=== PATIENT | female | born 1945 | race Caucasian/White ===

== ENCOUNTER 2017-12-30 11:16 | Observation (INO) | payer MEDICARE, SELFPAY ==
[2017-12-30] VITALS (14 sets, daily range): BP systolic 94–125; BP diastolic 44–106; PULSE 53–64; RESP 14–23; TEMP 36.4–37.2; O2SAT 97–100; BMI 24.1; BMI 22.0
--- NOTE | 2017-12-30 11:34 | NURSING ---
pt an family does not know medications obtained from external list, pt just got medications filled 6-18.
--- NOTE | 2017-12-30 11:35 | EKG12_ITS ---
Test Reason : DIZZINESS Blood Pressure : / mmHG Vent. Rate : 061 BPM Atrial Rate : 061 BPM P-R Int : 178 ms QRS Dur : 064 ms QT Int : 466 ms P-R-T Axes : 092 013 038 degrees QTc Int : 469 ms Normal sinus rhythm Normal ECG Confirmed by KM MOCTEZUMA, LIA ([id number]), industrial editor SHAMIKA MABRY ([id number] on 12/31/2017 5:01:02 PM Referred By: PATEL/DEEP Confirmed By:LIA BARBOUR MD
--- NOTE | 2017-12-30 11:36 | ED.VISSUMM ---
- ER Visit Summary Date of Service: 12/30/17 Chief Complaint: Syncope History of Present Illness: The patient is a [address] Tavares and Dr. Rasmussen. She reports that she had been standing in the garage for approximately 10 minutes when she had a syncopal episode. States that prior to that she had palpitations as though her heart was racing. She was very lightheaded and diaphoretic. She denies any chest pain. She denies any injuries from the fall. No blow to the head or loss of consciousness. She is not on any blood thinners. No neck, back, shoulder, wrist, or hip pain. Patient reports the only time she felt like this previously was when she was in atrial fibrillation. Currently she just complains of generalized weakness. Physical Examination: Vitals: Stable. Afebrile. General: Well-nourished and well-developed. Head: Normocephalic atraumatic. Neck: Supple, no lymphadenopathy. No JVD. Nontender. Cardiovascular: Bradycardic regular rhythm. No murmurs. Respiratory: No respiratory distress. Clear to auscultation bilaterally. Abdominal: Soft, nontender, nondistended, normal bowel sounds. No guarding, rebound, or peritoneal signs. Back: Nontender. Extremities: Nontender, no edema. Skin: Normal color, no rash. Neurologic: Alert and oriented ?3. Cranial nerves II through XII are intact. Normal strength and sensation. She has normal sensation light touch through her legs bilaterally. She has 2+ dorsalis pedis pulses bilaterally. Psych: Normal affect. Test Results: EKG is sinus at 61 with no acute changes. CBC is remarkable for a white count of 14.3 with 77 7 neutrophils and 14 lymphocytes. Chem-7 is more for glucose of 113. INR is 1.1. TSH is 2.19. Troponin is negative. Chest x-ray shows no acute disease. Emergency Department Course and Treatment: Patient rested comfortably while in the emergency department. She did however have systolic blood pressures less than 100. Treatment Plan: Patient was discussed with Dr. Ontiveros for. She will be admitted for further evaluation and treatment. Disposition: Admitted in improved condition. Impression: 1. Syncope. 2. Bilateral leg paresthesias, intermittent. This note was generated with Hyperpublic[employer] software. It may contain incorrect words, spelling, and punctuation that were not noted in review of the chart prior to signing ED Disposition - Plan for ED Patient: Disposition: Home or Assisted Living Chief Complaint: Dizziness
[2017-12-30 11:48] LABS: Absolute Lymphocyte Count 1.95 X10^3/ul (0.83-4.51); Absolute Neutrophil Count 10.9 X10^3/uL (2.0-7.7); Basophil# 0.01 X10^3/uL; Basophil% 0.1 % (0-1); Eosinophil# 0.02 X10^3/uL; Eosinophils% 0.1 % (0-5); Hematocrit 39.1 % (37-47); Hemoglobin 12.8 g/dl (12.0-15.0); Lymphocyte # 1.95 X10^3/ul (4.0); Lymphocyte % 13.7 % (19-41); Mean Corp Hgb Conc 32.7 g/gl (32-36); Mean Corpuscular Hgb 32.2 pg (27.0-32.0); Mean Corpuscular Volume 98.2 fL (81-99); Mean Platelet Vol. 10.9 fl (6.2-12.0); Monocyte# 1.36 X10^3/uL; Monocyte% 9.5 % (0-10); Neutrophil % 76.5 % (47-70); Platelet Count 170 K/mm3 (150-450); RBC Distribution Width SD 46.9 fl (35.1-43.9); Red Blood Count 3.98 M/mm3 (4.2-5.4); White Blood Count 14.3 K/mm3 (4.4-11.0)
[2017-12-30 11:50] LABS: POSITIVE COUNT NO; POSITIVE DIFFERENTIAL NO; POSITIVE MORPHOLOGY NO
[2017-12-30 11:51] LABS: International Normalized Ratio 1.1; Prothrombin Time (Protime)PT. 14.6 SECONDS (11.7-14.9)
[2017-12-30 12:07] LABS: Anion Gap 7 (5-15); BUN 17 mg/dL (7-18); BUN/Creat Ratio 19.1 RATIO (10-20); Calcium,Total 9.2 mg/dL (8.5-10.1); Chloride 103 mmol/L (98-107); Creatinine, Serum 0.89 mg/dL (0.55-1.02); EST Glomerular Filtration Rate 67 mL/min (>60); Est Glom Filt Rate - Afr Amer 81 mL/min (>60); Glucose 113 mg/dL (74-106); Potassium 4.2 mmol/L (3.5-5.1); Sodium Level 136 mmol/L (136-145); Thyroid Stim Hormone (TSH) 2.19 uIU/mL (0.358-3.74)
--- NOTE | 2017-12-30 13:08 | RAD_ITS ---
STUDY: X-RAY CHEST REASON FOR EXAM: Female, 72 years old. SYNCOPE ,WEAKNESS TECHNIQUE: Single AP portable view of the chest. COMPARISON: None. FINDINGS: The lungs are clear and hyperexpanded. There is no demonstrated pleural abnormality. Normal size heart. Normal mediastinum and raina. Normal visualized pulmonary arteries. There is atherosclerotic calcification of the aortic arch with tortuosity. Normal visualized thoracic spine. Normal visualized ribs, clavicles, and shoulders. There is no demonstrated abnormality of the visualized soft tissue structures of the upper abdomen. RAD/Chest 1 View (Portable) IMPRESSION: The lungs are hyperexpanded. Electronically Signed: Lina Tai MD at 13:25 EDT , Service support ,
--- NOTE | 2017-12-30 14:38 | PCM.HP.STD ---
Problem List (1) Dementia Status: Chronic (2) Paroxysmal atrial fibrillation Status: Chronic (3) Hyperlipidemia Status: Chronic (4) Hypertension Status: Chronic History of Present Illness Date of Admission: 12/30/17 Chief Complaint: Syncope The patient is a 72 year old F with past medical history as mentioned presented to the medicine because of syncope. According to the patient, she was standing in the garage, fell slightly dizzy and lightheaded and she passed out. According to her , she lost consciousness for about 30-45 seconds and she regained consciousness slowly. Reportedly and according to the opposition, she had significant palpitations and she was lightheaded and diaphoretic. She denied chest pain or shortness of breath. She denies any significant injuries fall. No head trauma. She reported numbness and tingling of both legs that has been going on for couple of months. She denied focal leg weakness. She denied back pain. She has history of paroxysmal atrial fibrillation and she has been on sotalol for rate control but not on anticoagulation. She has a history of hypertension and seems to be under control with lisinopril and sotalol. She has history of mild dementia, was on Aricept and around 1 week ago, she was started on memantine. In the emergency room, her vital signs were stable, and she was in sinus rhythm. Routine blood work was remarkable for leukocytosis, otherwise normal. EKG revealed normal sinus rhythm, normal [place] interval, normal QRS, QTC of 469 Ms. Troponin is negative. TSH is normal. Pro time and INR were normal. Chest x-ray showed no acute infiltrate, consolidation or effusion. She is being admitted for syncope for evaluation. Past Medical History Past Medical History (Chronic Problems): Chronic Problems Dementia (Chronic) Paroxysmal atrial fibrillation (Chronic) Hyperlipidemia (Chronic) Hypertension (Chronic) Allergies No Known Allergies Allergy (Verified 12/30/17 11:21) Home Medications: Ambulatory Orders Medication Instructions Recorded Aspirin [Aspirin, Baby] 81 mg PO DAILY@0800 12/30/17 Donepezil HCl [Aricept] 5 mg PO DAILY 12/30/17 Gabapentin [Neurontin] 300 mg PO DAILY 12/30/17 Memantine HCl [Memantine HCl] 5 mg PO BID 12/30/17 Sotalol HCl [Betapace AF (Beta 80 mg PO DAILY 12/30/17 Robyn)] lisinopril 2.5 mg tablet 2.5 mg PO DAILY #90 tab 12/30/17 simvastatin 20 mg tablet 20 mg PO QHS #90 tab 12/30/17 Surgical History: colectomy Psychiatric History: No pertinent psych hx 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 Denies: Anorexia, Chills, Fever Eyes: Denies: Blurred vision, Double vision, Drainage, Redness HEENT: Denies: Difficulty Hearing, Ear Pain, Eye Pain, Nasal Congestion, Sore Throat Cardiovascular: Reports: Light Headedness, Palpitations. Denies: Chest Pain, Chest Pressure, Edema, Heaviness, Orthopnea, Paroxysmal Noc. Dyspnea, Syncope Respiratory: Denies: Cough, Pleuritic Pain, Shortness of Breath, Sputum production, Wheezing Gastrointestinal: Reports: Nausea. Denies: Abdominal Pain, Constipation, Diarrhea, Vomiting Genitourinary: Denies: Dysuria, Frequency, Hematuria Musculoskeletal: Denies: Arm Pain, Back Pain, Foot Pain Skin: Denies: Dryness, Rash Neurological: Reports: Numbness, Tingling. Denies: Balance problems, Double vision, Change in Speech, Slurred speech, Confusion, Focal weakness, Headaches, Incoordination Psychiatric: Denies: Anxiety, Depression Endocrine: Denies: Change in Body Habitus, Polydipsia VTE Information - Inpt Only VTE Present on Admission: No VTE Mechan Device Prophylaxis: None VTE Pharm Prophylaxis ordered?: Yes - Physical Exam General: Alert, Oriented x3, Cooperative, No apparent distress HEENT: Atraumatic, PERRLA, EOMI, Normocephalic Neck: Supple, No JVD, Negative Carotid Bruits, Trachea Midline, Thyroid Normal Size and Texture Lungs: Clear to auscultation, No rhonchi, No wheeze, No rales, Diminished Cardiovascular: Regular rate, Regular Rhythm, Normal S1, Normal S2, No murmurs, PMI Normal Abdomen: Bowel Sounds Present, Soft, Non Tender, Non-Distended, No Hepato-splenomegaly Extremities: No clubbing, No cyanosis, No edema Skin: No rashes, No breakdown Lymphatic: No Cervical, Supraclavicular, or Inguinal Adenopathy Neurological: Cranial nerves II-XII grossly intact, Motor Exam 5/5 strength throughout Psych/Mental Status: Normal Affect, Appropriate, Alert and oriented to time, place, person, mood and affect Vital Signs Temp Pulse Resp BP Pulse Ox 97.5 F L 59 L 16 95/56 L 100 12/30/17 11:18 12/30/17 13:22 12/30/17 13:22 12/30/17 13:22 12/30/17 13:22 Oxygen Flow Rate (L/min) 2 Oxygen Delivery Method Room Air Weight: 145 lb 1.027 oz Body Mass Index (BMI) 24.1 Laboratory Tests Past 24 Hrs 12/30/17 12/30/17 12/30/17 11:25 11:25 11:25 WBC 14.3 H RBC 3.98 L Hgb 12.8 Hct 39.1 MCV 98.2 MCH 32.2 H MCHC 32.7 RDW 13.0 RDW Differential 46.9 H Plt Count 170 MPV 10.9 Immature Gran % (Auto) 0.100 Neut % (Auto) 76.5 H Lymph % (Auto) 13.7 L [place] % (Auto) 9.5 Eos % (Auto) 0.1 Baso % (Auto) 0.1 Absolute Neuts (auto) 10.9 H Absolute Lymphs (auto) 1.95 Total Counted Not Reportable PT 14.6 INR 1.1 Sodium 136 Potassium 4.2 Chloride 103 Carbon Dioxide 26.0 Anion Gap 7 BUN 17 Creatinine 0.89 Est GFR (MDRD) Af Amer 81 Est GFR (MDRD) Non-Af 67 BUN/Creatinine Ratio 19.1 Glucose 113 H Calcium 9.2 Troponin I < 0.015 TSH 2.19 Clinical Impression(s) from Imaging Studies Chest X-Ray 12/30/17 13:08 IMPRESSION: The lungs are hyperexpanded. Electronically Signed: Lina Tai MD at 13:25 EDT , Service support , Assessment/Plan This is a 72 years old female patient presented to the emergency room because of syncope and she is being admitted for evaluation #1 syncope: According to the history, it appeared to be cardiogenic in etiology. Differential diagnoses include cardiac arrhythmias including undiscovered run of A. fib with RVR or vascular disease. EKG reviewed, revealed normal sinus rhythm, no cardiac arrhythmias. She does have history of paroxysmal A. fib. At this time, vital signs are stable. Troponin is negative. She denied any focal deficit suggestive of stroke. Plan: Admit to PCU for observation, cardiac monitoring, serial cardiac enzymes, repeat EKG tomorrow morning, orthostatic vitals tomorrow morning, 2D echocardiogram, bilateral carotid Doppler, IV fluids, repeat CBC tomorrow morning, PT OT evaluation and treatment. #2 leukocytosis: Likely reactive secondary to syncope and stress. Has been mentioned that she has been having going under lots of stress and anxiety recently because of family issues. She denies any symptoms. Infection. Chest x-ray showed no acute infiltrate. She denies urinary symptoms. Plan to repeat CBC tomorrow morning. #3 hypertension: Blood pressure stable, continue sotalol and lisinopril. #4 paroxysmal A. fib: At this time, she is in sinus rhythm, stable. Plan to continue suitable, she is not on anticoagulants. #5 hyperlipidemia: Continue statins. #6 dementia: Continue Aricept and memantine. #7 DVT prophylaxis: Subcu Lovenox. This note was generated with [employer] dictation software. It may contain incorrect words, spelling, and punctuation that were not noted in checking the note before signing. Code Visit OBSV E&M: 06005 Initial observation care L3
--- NOTE | 2017-12-30 14:48 | HP.PCM_ITS ---
Problem List (1) Dementia Status: Chronic (2) Paroxysmal atrial fibrillation Status: Chronic (3) Hyperlipidemia Status: Chronic (4) Hypertension Status: Chronic History of Present Illness Date of Admission: 12/30/17 Chief Complaint: Syncope The patient is a 72 year old F with past medical history as mentioned presented to the medicine because of syncope. According to the patient, she was standing in the garage, fell slightly dizzy and lightheaded and she passed out. According to her , she lost consciousness for about 30-45 seconds and she regained consciousness slowly. Reportedly and according to the opposition, she had significant palpitations and she was lightheaded and diaphoretic. She denied chest pain or shortness of breath. She denies any significant injuries fall. No head trauma. She reported numbness and tingling of both legs that has been going on for couple of months. She denied focal leg weakness. She denied back pain. She has history of paroxysmal atrial fibrillation and she has been on sotalol for rate control but not on anticoagulation. She has a history of hypertension and seems to be under control with lisinopril and sotalol. She has history of mild dementia, was on Aricept and around 1 week ago , she was started on memantine. In the emergency room, her vital signs were stable, and she was in sinus rhythm. Routine blood work was remarkable for leukocytosis, otherwise normal. EKG revealed normal sinus rhythm, normal [place] interval, normal QRS, QTC of 469 Ms. Troponin is negative. TSH is normal. Pro time and INR were normal. Chest x-ray showed no acute infiltrate, consolidation or effusion. She is being admitted for syncope for evaluation. Past Medical History Past Medical History (Chronic Problems): Chronic Problems Dementia (Chronic) Paroxysmal atrial fibrillation (Chronic) Hyperlipidemia (Chronic) Hypertension (Chronic) Allergies No Known Allergies Allergy (Verified 12/30/17 11:21) Home Medications: Ambulatory Orders Medication Instructions Recorded Aspirin [Aspirin, Baby] 81 mg PO DAILY@0800 12/30/17 Donepezil HCl [Aricept] 5 mg PO DAILY 12/30/17 Gabapentin [Neurontin] 300 mg PO DAILY 12/30/17 Memantine HCl [Memantine HCl] 5 mg PO BID 12/30/17 Sotalol HCl [Betapace AF (Beta 80 mg PO DAILY 12/30/17 Robyn)] lisinopril 2.5 mg tablet 2.5 mg PO DAILY #90 tab 12/30/17 simvastatin 20 mg tablet 20 mg PO QHS #90 tab 12/30/17 Surgical History: colectomy Psychiatric History: No pertinent psych hx 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 Denies: Anorexia, Chills, Fever Eyes: Denies: Blurred vision, Double vision, Drainage, Redness HEENT: Denies: Difficulty Hearing, Ear Pain, Eye Pain, Nasal Congestion, Sore Throat Cardiovascular: Reports: Light Headedness, Palpitations. Denies: Chest Pain, Chest Pressure, Edema, Heaviness, Orthopnea, Paroxysmal Noc. Dyspnea, Syncope Respiratory: Denies: Cough, Pleuritic Pain, Shortness of Breath, Sputum production, Wheezing Gastrointestinal: Reports: Nausea. Denies: Abdominal Pain, Constipation, Diarrhea, Vomiting Genitourinary: Denies: Dysuria, Frequency, Hematuria Musculoskeletal: Denies: Arm Pain, Back Pain, Foot Pain Skin: Denies: Dryness, Rash Neurological: Reports: Numbness, Tingling. Denies: Balance problems, Double vision, Change in Speech, Slurred speech, Confusion, Focal weakness, Headaches, Incoordination Psychiatric: Denies: Anxiety, Depression Endocrine: Denies: Change in Body Habitus, Polydipsia VTE Information - Inpt Only VTE Present on Admission: No VTE Mechan Device Prophylaxis: None VTE Pharm Prophylaxis ordered?: Yes - Physical Exam General: Alert, Oriented x3, Cooperative, No apparent distress HEENT: Atraumatic, PERRLA, EOMI, Normocephalic Neck: Supple, No JVD, Negative Carotid Bruits, Trachea Midline, Thyroid Normal Size and Texture Lungs: Clear to auscultation, No rhonchi, No wheeze, No rales, Diminished Cardiovascular: Regular rate, Regular Rhythm, Normal S1, Normal S2, No murmurs, PMI Normal Abdomen: Bowel Sounds Present, Soft, Non Tender, Non-Distended, No Hepato- splenomegaly Extremities: No clubbing, No cyanosis, No edema Skin: No rashes, No breakdown Lymphatic: No Cervical, Supraclavicular, or Inguinal Adenopathy Neurological: Cranial nerves II-XII grossly intact, Motor Exam 5/5 strength throughout Psych/Mental Status: Normal Affect, Appropriate, Alert and oriented to time, place, person, mood and affect Vital Signs Temp Pulse Resp BP Pulse Ox 97.5 F L 59 L 16 95/56 L 100 12/30/17 11:18 12/30/17 13:22 12/30/17 13:22 12/30/17 13:22 12/30/17 13:22 Oxygen Flow Rate (L/min) 2 Oxygen Delivery Method Room Air Weight: 145 lb 1.027 oz Body Mass Index (BMI) 24.1 Laboratory Tests Past 24 Hrs 12/30/17 12/30/17 12/30/17 11:25 11:25 11:25 WBC 14.3 H RBC 3.98 L Hgb 12.8 Hct 39.1 MCV 98.2 MCH 32.2 H MCHC 32.7 RDW 13.0 RDW Differential 46.9 H Plt Count 170 MPV 10.9 Immature Gran % (Auto) 0.100 Neut % (Auto) 76.5 H Lymph % (Auto) 13.7 L [place] % (Auto) 9.5 Eos % (Auto) 0.1 Baso % (Auto) 0.1 Absolute Neuts (auto) 10.9 H Absolute Lymphs (auto) 1.95 Total Counted Not Reportable PT 14.6 INR 1.1 Sodium 136 Potassium 4.2 Chloride 103 Carbon Dioxide 26.0 Anion Gap 7 BUN 17 Creatinine 0.89 Est GFR (MDRD) Af Amer 81 Est GFR (MDRD) Non-Af 67 BUN/Creatinine Ratio 19.1 Glucose 113 H Calcium 9.2 Troponin I < 0.015 TSH 2.19 Clinical Impression(s) from Imaging Studies Chest X-Ray 12/30/17 13:08 IMPRESSION: The lungs are hyperexpanded. Electronically Signed: Lina Tai MD at 13:25 EDT , Service support , Assessment/Plan This is a 72 years old female patient presented to the emergency room because of syncope and she is being admitted for evaluation #1 syncope: According to the history, it appeared to be cardiogenic in etiology. Differential diagnoses include cardiac arrhythmias including undiscovered run of A. fib with RVR or vascular disease. EKG reviewed, revealed normal sinus rhythm, no cardiac arrhythmias. She does have history of paroxysmal A. fib. At this time, vital signs are stable. Troponin is negative. She denied any focal deficit suggestive of stroke. Plan: Admit to PCU for observation, cardiac monitoring, serial cardiac enzymes, repeat EKG tomorrow morning, orthostatic vitals tomorrow morning, 2D echocardiogram, bilateral carotid Doppler, IV fluids, repeat CBC tomorrow morning, PT OT evaluation and treatment. #2 leukocytosis: Likely reactive secondary to syncope and stress. Has been mentioned that she has been having going under lots of stress and anxiety recently because of family issues. She denies any symptoms. Infection. Chest x-ray showed no acute infiltrate. She denies urinary symptoms. Plan to repeat CBC tomorrow morning. #3 hypertension: Blood pressure stable, continue sotalol and lisinopril. #4 paroxysmal A. fib: At this time, she is in sinus rhythm, stable. Plan to continue suitable, she is not on anticoagulants. #5 hyperlipidemia: Continue statins. #6 dementia: Continue Aricept and memantine. #7 DVT prophylaxis: Subcu Lovenox. This note was generated with [employer] dictation software. It may contain incorrect words, spelling, and punctuation that were not noted in checking the note before signing. Code Visit OBSV E&M: 54869 Initial observation care L3
--- NOTE | 2017-12-30 16:11 | CDU_ITS ---
Reason For Study: syncope Rt. Velocities/BP Lt. Velocities/BP Prox CCA 62.1/14.7 cm/sec. Prox CCA 89.7/25.2 cm/sec. Mid CCA 65.7/19.3 cm/sec. Mid CCA 68.0/18.8 cm/sec. Dist CCA 67.4/19.3 cm/sec. Dist CCA 73.9/23.5 cm/sec. Prox ICA 69.2/23.5 cm/sec. Prox ICA 73.9/21.7 cm/sec. Mid ICA 82.7/24.6 cm/sec. Mid ICA 74.5/25.8 cm/sec. Dist ICA 116/40.5 cm/sec. Dist ICA 102/35.8 cm/sec. Rt. ICA/CCA = 1.8. Lt. ICA/CCA = 1.5. Prox ECA 67.4/7.62 cm/sec. Prox ECA 55.7/11.1 cm/sec. Rt. Vert. 38.7/11.1 cm/sec. Lt. Vert. 38.1/12.9 cm/sec. Right Extracranial There is intimal thickening but no significant atherosclerotic plaque noted in the right common carotid artery. There is heterogeneous, irregular atherosclerotic plaque noted in the right internal carotid artery. There is intimal thickening but no significant atherosclerotic plaque noted in the right external carotid artery. Antegrade flow is noted in the right vertebral artery. Left Extracranial There is heterogeneous, irregular atherosclerotic plaque noted in the left common carotid artery. There is heterogeneous, irregular atherosclerotic plaque noted in the left internal carotid artery. There is intimal thickening but no significant atherosclerotic plaque noted in the left external carotid artery. Antegrade flow is noted in the left vertebral artery. Procedure Carotid Duplex [id number]. The exam was diagnostic. Exam performed portable in patient room. Interpretation Summary Minimal irregular calcific plague at the proximal right internal carotid with <50% stenosis. Minimal irregular calcific plague at the proixmal left internal carotid with <50% stenosis. Normal flow bilateral external carotids Patent and antegrade vertebrals bilaterally. Ordering Physician: Mili Thomason Performed By: Vikas Johnson RVT
--- NOTE | 2017-12-30 16:11 | ECHOD_ITS ---
Reason For Study: Syncope/Near Syncope Procedure This was a 2D Doppler, Color Flow transthoracic echocardiogram. The exam was of adequate technical quality. Exam performed in department. Left Ventricle Normal LV size. Left ventricular systolic function is normal. The estimated ejection fraction is 65 %. No evidence for diastolic dysfunction. No regional wall motion abnormalities noted. Right Ventricle Normal RV size. Normal systolic function. Atria Normal left atrium. Normal right atrium. No doppler evidence for ASD. Mitral Valve There is no mitral annular calcification. Normal mitral valve. Mild (1+) mitral valve insufficiency. Tricuspid Valve Normal tricuspid valve. Mild tricuspid valve insufficiency. Right ventricular systolic pressure estimated to be 21 mmHg. Aortic Valve Trisinus/trileaflet aortic valve. Mild focal aortic valve thickening. Pulmonic Valve The pulmonic valve is not well visualized. Trivial pulmonic valve insufficiency. Great Vessels Normal sized aortic root. Pericardium/Pleural No pericardial effusion. MMode/2D Measurements & Calculations LVIDd: 4.4 cm IVSd: 0.62 cm Ao root diam: 2.7 cm LVIDs: 2.5 cm LVPWd: 0.65 cm RVDd: 3.9 cm FS: 43.4 % LAV(MOD-bp): 33.5 ml LA A4 area: 14.2 cm2 RA A4 area: 12.4 cm2 LAV(MOD-bp) Indexed: 20.2 ml/m2 LAV(MOD-sp2): 30.7 ml LAV(MOD-sp4): 30.8 ml Doppler Measurements & Calculations MV E max gabriel: 91.2 cm/sec Lat Peak E' Gabriel: 11.2 cm/sec Med Peak E' Gabriel: 9.6 cm/sec MV A max gabriel: 86.9 cm/sec E/E' lat: 8.1 E/E' med: 9.6 MV E/A: 1.0 Ao V2 max: 147.1 cm/sec LV V1 max: 92.6 cm/sec PA V2 max: 101.9 cm/sec Ao max P.7 mmHg LV V1 max P.4 mmHg Ao V2 mean: 100.6 cm/sec Ao mean P.5 mmHg Ao V2 VTI: 31.7 cm TR max gabriel: 214.7 cm/sec TR max P.4 mmHg Interpretation Summary Left ventricular systolic function is normal. The estimated ejection fraction is 65 %. Mild (1+) mitral valve insufficiency. Mild tricuspid valve insufficiency. Mild focal aortic valve thickening. Trivial pulmonic valve insufficiency. Right ventricular systolic pressure estimated to be 21 mmHg. No evidence for diastolic dysfunction. Ordering Physician: Mili Thomason Referring Physician: Constance Tavares Performed By: Yana Cobian RDCS, RVT
[2017-12-30] MEDS: 0.9% Normal Saline 1,000 ML 75 ML IV (16:40)
[2017-12-30] MEDS: Memantine Hydrochloride 5 MG Tablet PO (21:09)
[2017-12-30] MEDS: Atorvastatin Calcium 10 MG Tablet PO (21:09)
[2017-12-31] VITALS (13 sets, daily range): BP systolic 93–111; BP diastolic 45–59; PULSE 52–71; RESP 14–20; TEMP 36.5–37; O2SAT 95–98
[2017-12-31 06:21] LABS: Hematocrit 35.8 % (37-47); Hemoglobin 11.9 g/dl (12.0-15.0); Mean Corp Hgb Conc 33.2 g/gl (32-36); Mean Corpuscular Hgb 33.3 pg (27.0-32.0); Mean Corpuscular Volume 100.3 fL (81-99); Mean Platelet Vol. 10.7 fl (6.2-12.0); Platelet Count 134 K/mm3 (150-450); RBC Distribution Width CV 12.8 % (11.6-14.6); RBC Distribution Width SD 45.9 fl (35.1-43.9); Red Blood Count 3.57 M/mm3 (4.2-5.4); White Blood Count 7.4 K/mm3 (4.4-11.0)
[2017-12-31 06:38] LABS: Scan Indicated on CBC? Y/N NO
[2017-12-31] MEDS: Aspirin 81 MG TAB.CHEW PO (08:16)
[2017-12-31] MEDS: Gabapentin 300 MG Capsule PO (08:16)
[2017-12-31] MEDS: Memantine Hydrochloride 5 MG Tablet PO ×2 (10:04→22:23)
[2017-12-31] MEDS: Enoxaparin 40 MG/0.4 ML Syringe SC (10:04)
[2017-12-31] MEDS: Donepezil HCl 5 MG Tablet PO (10:04)
[2017-12-31] MEDS: Sotalol Hydrochloride 80 MG Tablet PO (10:04)
[2017-12-31 10:45] LABS: Bacteria 0 SEEN /hpf (None Seen); Mucous, Urine 0 SEEN /hpf (<or=2+); Red Blood Cells-Urine 0 SEEN /hpf (0-5)
[2017-12-31 10:49] LABS: Color, Urine Yellow (Yellow); Glucose, Dipstick Normal (Normal); Ketone-Dipstick Negative (Negative); Leukocyte Esterase-Dipstick 25 /ul (Negative); Nitrite-Dipstick Negative (Negative); Occult Blood-Urine Negative /ul (Negative); Protein-Dipstick Negative (Negative); Specific Gravity, Urine 1.015 (1.002-1.030); Urine Bilirubin Dipstick Negative (Negative); Urine Clarity Sl. Cloudy (Clear); Urine Urobilinogen Normal (Normal)
[2017-12-31 11:14] LABS: Squamous Epithelial Cells - UA 0-5 SEEN /hpf (5-10); White Blood Cells 0-5 SEEN /hpf (0-5)
--- NOTE | 2017-12-31 13:41 | PN_ITS ---
Subjective: Patient seen and examined. No new complains. Vitals are stable. Objective: Physical Exam General: Alert, Oriented x3, Cooperative, No apparent distress HEENT: Atraumatic, PERRLA, EOMI, Normocephalic Neck: Supple, No JVD, Negative Carotid Bruits, Trachea Midline, Thyroid Normal Size and Texture Lungs: Clear to auscultation, No rhonchi, No wheeze, No rales, Diminished Cardiovascular: Regular rate, Regular Rhythm, Normal S1, Normal S2, No murmurs, PMI Normal Abdomen: Bowel Sounds Present, Soft, Non Tender, Non-Distended, No Hepato- splenomegaly Extremities: No clubbing, No cyanosis, No edema Skin: No rashes, No breakdown Lymphatic: No Cervical, Supraclavicular, or Inguinal Adenopathy Neurological: Cranial nerves II-XII grossly intact, Motor Exam 5/5 strength throughout Psych/Mental Status: Normal Affect, Appropriate, Alert and oriented to time, place, person, mood and affect Vitals/I&O's: Vital Signs Temp Pulse Resp BP Pulse Ox 98.6 F 64 14 95/45 L 97 12/31/17 10:01 12/31/17 10:01 12/31/17 10:01 12/31/17 10:01 12/31/17 10:01 Oxygen Flow Rate (L/min) 1 Oxygen Delivery Method Room Air Weight: 60 kg Body Mass Index (BMI) 22.0 Orthostatic Vital Signs Start: 12/31/17 05:24 Freq: q24h Status: Active Protocol: Activity Type Activity Date Activity User E-Sign Co-Sign Detail Recorded Client Recorded Date Recorded By Document 12/31/17 05:24 [facility] [place] [id number] 12/31/17 05:31 [facility] [place]/31/17 05:24 Orthostatic Vitals Standing -Blood Pressure (90/60-120/80) 105/59 L -Extremity Use Right Arm -Pulse Rate (60-100) 61 Sitting -Blood Pressure (90/60-120/80) 102/59 L -Extremity Use Right Arm -Pulse Rate (60-100) 57 L Lying -Blood Pressure (90/60-120/80) 93/48 L -Extremity Use Right Arm -Pulse Rate (60-100) 54 L Intake and Output for Last 24 Hours 12/29/17 12/30/1718 23:59 23:59 23:59 Intake Total 360 / 360 1404 / 1404 Balance 360 / 360 1404 / 1404 Laboratory Results 12/30/17 16:35: Troponin I < 0.015 12/30/17 18:56: Troponin I < 0.015 12/31/17 05:35: WBC 7.4, RBC 3.57 L, Hgb 11.9 L, Hct 35.8 L, MCV 100.3 H, MCH 33.3 H, MCHC 33.2, RDW 12.8, RDW Differential 45.9 H, Plt Count 134 L, MPV 10.7 12/31/17 10:35: Urine Color Yellow, Urine Clarity Sl. Cloudy, Urine pH 6.0, Ur Specific [place] 1.015, Urine Protein Negative, Urine Glucose (UA) Normal, Urine Ketones Negative, Urine Occult Blood Negative, Urine Nitrite Negative, Urine Bilirubin Negative, Urine Urobilinogen Normal, Ur Leukocyte Esterase 25 H , Urine RBC 0 SEEN, Urine WBC 0-5 SEEN, Ur Squamous Epith Cells 0-5 SEEN, Urine Bacteria 0 SEEN, Urine Mucus 0 SEEN Current Medications Acetaminophen (Tylenol) 650 mg PO Q6H PRN PRN PRN Reason: Mild Pain (scale 0-3)/T>100.7 Aspirin (Aspirin, Baby) 81 mg PO DAILY@0800 [facility] Last Admin: 12/31/17 08:16 Dose: 81 mg Atorvastatin Calcium (Lipitor) 10 mg PO QHS [facility] Last Admin: 12/30/17 21:09 Dose: 10 mg Donepezil HCl (Aricept) 5 mg PO DAILY [facility] Last Admin: 12/31/17 10:04 Dose: 5 mg Enoxaparin Sodium (Lovenox) 40 mg SC DAILY@1000 [facility] Last Admin: 12/31/17 10:04 Dose: 40 mg Gabapentin (Neurontin) 300 mg PO DAILYCM [facility] Last Admin: 12/31/17 08:16 Dose: 300 mg Lisinopril (Zestril) 2.5 mg PO DAILY [facility] Last Admin: 12/31/17 11:13 Dose: Not Given Magnesium Hydroxide (Milk Of Magnesia) 30 ml PO DAILY PRN PRN Reason: Constipation Memantine (Namenda) 5 mg PO BID [facility] Last Admin: 12/31/17 10:04 Dose: 5 mg Ondansetron HCl (Zofran) 4 mg IV Q8H PRN PRN PRN Reason: Nausea Sodium Chloride () 5 - 30 ml IV UD PRN PRN Reason: SALINE FLUSH Sotalol HCl (Betapace (G)) 80 mg PO DAILY [facility] Last Admin: 12/31/17 10:04 Dose: 80 mg Medical Necessity - Tobacco Use Smoking Status: Former smoker Assessment/Plan 72 years old female patient presented to the emergency room because of syncope and she is being admitted for evaluation 1. Syncope, likely cardiogenic, no events on telemetry, troponins are negative, 2d-echo is normal. Patient will need a holter monitor on discharge. 2. Leukocytosis, reactive, resolved 3. Hypertension, on stable, continue sotalol and lisinopril. 4. Paroxysmal A. fib, in NSR, no anticoagulants 5. Hyperlipidemia, on statins. 6. Dementia, on Aricept and memantine. 7. DVT prophylaxis: Subcu Lovenox. Code Visit Inpatient E&M: 50489 Subs Hosp L2
[2017-12-31] MEDS: Atorvastatin Calcium 10 MG Tablet PO (22:23)
[2018-01-01] VITALS (9 sets, daily range): BP systolic 101–119; BP diastolic 46–71; PULSE 56–72; RESP 14–16; TEMP 36.4–37; O2SAT 95–97
[2018-01-01] MEDS: Aspirin 81 MG TAB.CHEW PO (07:56)
[2018-01-01] MEDS: Acetaminophen 325 MG Tablet 650 MG PO (07:56)
[2018-01-01] MEDS: Gabapentin 300 MG Capsule PO (07:57)
[2018-01-01] MEDS: Donepezil HCl 5 MG Tablet PO (09:34)
[2018-01-01] MEDS: Memantine Hydrochloride 5 MG Tablet PO (09:34)
[2018-01-01] MEDS: Enoxaparin 40 MG/0.4 ML Syringe SC (09:34)
[2018-01-01] MEDS: Sotalol Hydrochloride 80 MG Tablet PO (09:34)
--- NOTE | 2018-01-01 11:40 | PCM.DC ---
- Discharge Diagnoses Current Active Problems: Current Active and Chronic Problems Dementia (Chronic) Paroxysmal atrial fibrillation (Chronic) Hyperlipidemia (Chronic) Hypertension (Chronic) You will use the following diet at home:: Cardiac Your food should be the consistency of: Regular Your liquids should be the consistency of: Regular/Thin Discharge Activity: Return to Normal Activity Allergies/Adverse Reactions: Allergies No Known Allergies Allergy (Verified 12/30/17 11:21) Medications to take at Discharge Aspirin [Aspirin, Baby] 81 mg PO DAILY@0800 12/30/17 Donepezil HCl [Aricept] 5 mg PO DAILY 12/30/17 Gabapentin [Neurontin] 300 mg PO DAILY 12/30/17 Memantine HCl 5 mg PO BID 12/30/17 Sotalol HCl [Betapace AF (Beta Robyn)] 80 mg PO DAILY 12/30/17 lisinopril 2.5 mg tablet 2.5 mg PO DAILY #90 tab 12/30/17 simvastatin 20 mg tablet 20 mg PO QHS #90 tab 12/30/17 Primary Care Physician: Constance Tavares [Primary Care Provider] - Please follow up with your Primary Care Physician in: 1-2 weeks Please Follow Up With: Stephen Rasmussen MD When: 2 weeks Proposed Discharge Date: 01/01/18
--- NOTE | 2018-01-01 13:28 | PCM.CONS.C ---
Problem List (1) Syncope Status: Acute (2) Paroxysmal atrial fibrillation Status: Chronic (3) Hyperlipidemia Status: Chronic (4) Hypertension Status: Chronic (5) Dementia Status: Chronic Reason for Consult Date of Consultation: 01/01/18 History of Present Illness: The patient is a 72 year old white female with a past cardiovascular history which has included underlying syncope, paroxysmal atrial fibrillation, hyperlipidemia, and hypertension, who is referred for evaluation of syncope. She has also been diagnosed with dementia. She notes that either before or after her daily walk yesterday, she cannot remember whether it was before or after her daily walk, she was in her garage, getting ready to enter her home, with her sister present, and subsequently lost consciousness. She does not recall having any obvious chest discomfort at rest or with exertion. There has been no obvious shortness of breath or dyspnea. There has been no obvious palpitations. She denied any associated nausea, emesis, diaphoresis, or the sensation overall warmth. She states she remembers being on the floor and seeing the EMS arrived. She then remembers arriving at the hospital. She does not recall any other symptoms since her event. She does note she was recently started on a new medication (Namenda) for her dementia. She states she had only been on this for a few days prior to her event. Since being in the hospital she has been monitored. She has been in sinus rhythm. Her cardiac enzyme was negative. Her ECG demonstrated sinus rhythm with no acute ECG changes. She is undergone noninvasive studies including a transthoracic echocardiogram and a carotid artery duplex study. Transthoracic echocardiogram noted the following: Interpretation Summary Left ventricular systolic function is normal. The estimated ejection fraction is 65 %. Mild (1+) mitral valve insufficiency. Mild tricuspid valve insufficiency. Mild focal aortic valve thickening. Trivial pulmonic valve insufficiency. Right ventricular systolic pressure estimated to be 21 mmHg. No evidence for diastolic dysfunction. Her carotid artery duplex study noted the following: Interpretation Summary Minimal irregular calcific plague at the proximal right internal carotid with <50% stenosis. Minimal irregular calcific plague at the proixmal left internal carotid with <50% stenosis. Normal flow bilateral external carotids Patent and antegrade vertebrals bilaterally. She has denied any other symptoms recently of concerning chest discomfort, dyspnea at rest or with exertion, orthopnea, PND, peripheral pitting edema, or near syncope or syncope. She has been taking her medications as prescribed. She does know that she has been diagnosed with dementia. She admits that her memory is becoming somewhat challenging. [] Past Medical History Allergies/Adverse Reactions: Allergies No Known Allergies Allergy (Verified 12/30/17 11:21) Home Medications: Ambulatory Orders Medication Instructions Recorded Aspirin [Aspirin, Baby] 81 mg PO DAILY@0800 12/30/17 Donepezil HCl [Aricept] 5 mg PO DAILY 12/30/17 Gabapentin [Neurontin] 300 mg PO DAILY 12/30/17 Memantine HCl 5 mg PO BID 12/30/17 Sotalol HCl [Betapace AF (Beta 80 mg PO DAILY 12/30/17 Robyn)] lisinopril 2.5 mg tablet 2.5 mg PO DAILY #90 tab 12/30/17 simvastatin 20 mg tablet 20 mg PO QHS #90 tab 12/30/17 Past Medical History (Chronic Problems): Chronic Problems Dementia (Chronic) Paroxysmal atrial fibrillation (Chronic) Hyperlipidemia (Chronic) Hypertension (Chronic) Surgical History: colectomy Psychiatric History: No 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 Denies: Chest Discomfort, Shortness of Breath, Orthopnea, PND, Peripheral Edema, Palpitations, Lightheadedness, Dizziness Respiratory: Denies: Cough, Sputum Production, Hemoptysis Gastrointestinal: Denies: Hematemesis, Hematochezia, Melena Genitourinary: Denies: Dysuria, Hematuria Skin: Denies: Rash Subjectve: Is a 72-year-old white female who appears to be resting comfortably at the moment in no acute distress. Objective: Vital Signs Temp Pulse Resp BP Pulse Ox 97.8 F 59 L 16 112/52 L 95 01/01/18 12:07 01/01/18 12:07 01/01/18 12:07 01/01/18 12:07 01/01/18 12:07 Oxygen Flow Rate (L/min) 1 Oxygen Delivery Method Room Air Weight: 132 lb 4.438 oz Body Mass Index (BMI) 22.0 Intake and Output for Last 24 Hours 12/30/17 12/31/17 01/01/18 23:59 23:59 23:59 Intake Total 360 / 360 2053 530 / 530 Balance 360 / 360 2053 530 / 530 General: Awake, Alert, Oriented x 3, Cooperative, No Acute Distress HEENT: Atraumatic, Normocephalic, PERRL, EOMI, Sclera Non Icteric Oral: Moist Mucosa Neck: Supple, Good ROM, No JVD Lungs: Clear to auscultation Cardiovascular: Regular Rhythm, Normal S1, Normal S2 Vascular: No Carotid Bruits Abdomen: Bowel Sounds Present, Soft, Non Tender Extremities: No Cyanosis, No Clubbing, No edema Neurological: No Focal Motor or Sensory Deficit Psych/Mental Status: Appropriate, Normal Affect, Dementia Rhythm: Sinus rhythm EKG: Sinus rhythm ECHO: As noted above Stress Test: 03/16/2015: Stress nuclear imaging study/pharmacologic stress nuclear imaging study: Nuclear images demonstrating myocardial perfusion within normal limits Cardiac Cath: 10/02/2009: Left ventricle considered normal with an LVEF of 65%; left main-normal; LAD-ostial 10% stenosis; LCx-minimal luminal irregularities; RCA-proximal to mid diffuse 10-25% stenosis CXR: Preliminary evaluation: No acute cardiopulmonary disease process appreciated: Please see official report Assessment/Plan 1. Syncope The etiology of the patient's syncopal event is uncertain at this time. There are concerns of potential underlying cardiac dysrhythmia/conduction system related abnormality, however, none have been detected at this time during her hospitalization. There may be concerns of underlying vasovagal type events, however, the patient does not describe other associated symptoms with her recent event. Thus far there is been no other obvious explanation. Her noninvasive evaluation is as noted above. At the present time she is going to continue medical management. It is unclear as to whether her new medication, Namenda, is contributing to her symptoms and/or event. It may not be unreasonable to consider placing this on hold temporarily. Otherwise it was felt the patient would be further evaluated with a 30 day ambulatory event monitor. This would be to correlate any other symptoms or events with her underlying cardiac rhythm. 2. Paroxysmal atrial fibrillation The patient remains in sinus rhythm at this time. She will continue her current medical management. She will continue follow-up as noted above. 3. Hyperlipidemia The patient will continue risk factor evaluation medical management as deemed appropriate. 4. Hypertension The patient's blood pressures will need to be followed. Her medications can be adjusted as deemed appropriate. 5. Dementia She will continue under the care of her primary care physician for this diagnosis. Comment: The patient's case was discussed with the patient. She was agreeable to this approach. This note was generated with [employer] dictation software. It may contain incorrect words, spelling, and punctuation that were not noted in checking the note before signing.
--- NOTE | 2018-01-01 13:33 | PCM.DC.SUM ---
<Vish Abebe - Last Filed: 01/01/18 13:33> Discharge Date and Diagnosis Date of Admission: 12/30/17 Date of Discharge: 01/01/18 - Primary Discharge Diagnosis Syncope unclear etiology Dementia HTN Paroxysmal AF HLD - Secondary Discharge Diagnosis Chronic Problems Dementia (Chronic) Paroxysmal atrial fibrillation (Chronic) Hyperlipidemia (Chronic) Hypertension (Chronic) Hospital Course and Treatment Imaging Results: RAD/Chest 1 View (Portable) IMPRESSION: The lungs are hyperexpanded. Carotid US: Interpretation Summary Minimal irregular calcific plague at the proximal right internal carotid with <50% stenosis. Minimal irregular calcific plague at the proixmal left internal carotid with <50% stenosis. Normal flow bilateral external carotids Patent and antegrade vertebrals bilaterally. Echo: Interpretation Summary Left ventricular systolic function is normal. The estimated ejection fraction is 65 %. Mild (1+) mitral valve insufficiency. Mild tricuspid valve insufficiency. Mild focal aortic valve thickening. Trivial pulmonic valve insufficiency. Right ventricular systolic pressure estimated to be 21 mmHg. No evidence for diastolic dysfunction. Consults: [facility] - cardiology Operations: None Procedures: 2-D Echocardiogram Summary of Care Provided: Physical exam on day of discharge: General: Resting comfortably NAD Psych: A/Ox3 normal affect HEENT: PEARRLA AT NC Neck: Supple NT CV: RRR no m/t/r/g/h Resp: CTA Abd: [id number] Soft NT no guarding or rigidity Ext: DP2+= no edema Skin: W/D normal turgor Lymph/Heme: No active bleeding or adenopathy Neuro: CN2-12 intact Hospital course: The patient is a 72 year old F with a hx of Paroxysmal AF, dementia, HLD, who presented to the ER with a syncopal episode that occurred suddenly without warning while standing and talking to her sister. She presented to the ER and had mild leukocytosis but otherwise normal bloodwork, negative UA, negative CXR, negative troponin, negative EKG. She was admitted to telemetry and maintain on tele overnight with repeat troponins. These were negative. She underwent an echocardiogram and carotid ultrasound. Orthostatic vitals were negative. Cardiology was consulted who recommended a 30 day event monitor. She had no further symptoms so she was discharged home in stable condition. Of note, she also had recently started namenda 3 days prior to this occurrent which could possibly have contributed, however it was continued here and she had no issues. Additionally it could have been stress related as she revealed the conversation with her sister was very upsetting and her felt it may have been contributory. Please follow up with PCP and cardiology. This patient was seen by Vish Abebe PA-C under the supervision of Doctor Jovi. [] Discharge Diet: Low fat/ Low Cholesterol, 2000 mg Sodium Diet Discharge Activity: Return to Normal Activity Home Medications: Medications to take at Discharge Aspirin [Aspirin, Baby] 81 mg PO DAILY@0800 12/30/17 Donepezil HCl [Aricept] 5 mg PO DAILY 12/30/17 Gabapentin [Neurontin] 300 mg PO DAILY 12/30/17 Memantine HCl 5 mg PO BID 12/30/17 Sotalol HCl [Betapace AF (Beta Robyn)] 80 mg PO DAILY 12/30/17 lisinopril 2.5 mg tablet 2.5 mg PO DAILY #90 tab 12/30/17 simvastatin 20 mg tablet 20 mg PO QHS #90 tab 12/30/17 Primary Care Physician: Constance Tavares [Primary Care Provider] - Please follow up with your Primary Care Physician in: 1-2 weeks Please Follow Up With: Stephen Rasmussen MD When: 2 weeks Please Follow Up With: Constance Tavares Disposition: Home Minutes spent on discharge:: 35 Patient Condition:: Stable Medical Necessity - Tobacco Use Smoking Status: Former smoker Meaningful Use Info Meaningful Use Diagnoses (Choose all that apply): None applicable <Sweetie Espana - Last Filed: 01/01/18 15:37> Discharge Date and Diagnosis - Secondary Discharge Diagnosis Chronic Problems Dementia (Chronic) Paroxysmal atrial fibrillation (Chronic) Hyperlipidemia (Chronic) Hypertension (Chronic) Hospital Course and Treatment Summary of Care Provided: The patient is a 72 year old F [] Code Visit Inpatient E&M: 39001 Disch Hosp
--- NOTE | 2018-01-01 13:39 | CON.PCM_ITS ---
Problem List (1) Syncope Status: Acute (2) Paroxysmal atrial fibrillation Status: Chronic (3) Hyperlipidemia Status: Chronic (4) Hypertension Status: Chronic (5) Dementia Status: Chronic Reason for Consult Date of Consultation: 01/01/18 History of Present Illness: The patient is a 72 year old white female with a past cardiovascular history which has included underlying syncope, paroxysmal atrial fibrillation, hyperlipidemia, and hypertension, who is referred for evaluation of syncope. She has also been diagnosed with dementia. She notes that either before or after her daily walk yesterday, she cannot remember whether it was before or after her daily walk, she was in her garage, getting ready to enter her home, with her sister present, and subsequently lost consciousness. She does not recall having any obvious chest discomfort at rest or with exertion. There has been no obvious shortness of breath or dyspnea. There has been no obvious palpitations. She denied any associated nausea, emesis, diaphoresis, or the sensation overall warmth. She states she remembers being on the floor and seeing the EMS arrived. She then remembers arriving at the hospital. She does not recall any other symptoms since her event. She does note she was recently started on a new medication (Namenda) for her dementia. She states she had only been on this for a few days prior to her event. Since being in the hospital she has been monitored. She has been in sinus rhythm. Her cardiac enzyme was negative. Her ECG demonstrated sinus rhythm with no acute ECG changes. She is undergone noninvasive studies including a transthoracic echocardiogram and a carotid artery duplex study. Transthoracic echocardiogram noted the following: Interpretation Summary Left ventricular systolic function is normal. The estimated ejection fraction is 65 %. Mild (1+) mitral valve insufficiency. Mild tricuspid valve insufficiency. Mild focal aortic valve thickening. Trivial pulmonic valve insufficiency. Right ventricular systolic pressure estimated to be 21 mmHg. No evidence for diastolic dysfunction. Her carotid artery duplex study noted the following: Interpretation Summary Minimal irregular calcific plague at the proximal right internal carotid with < 50% stenosis. Minimal irregular calcific plague at the proixmal left internal carotid with <50 % stenosis. Normal flow bilateral external carotids Patent and antegrade vertebrals bilaterally. She has denied any other symptoms recently of concerning chest discomfort, dyspnea at rest or with exertion, orthopnea, PND, peripheral pitting edema, or near syncope or syncope. She has been taking her medications as prescribed. She does know that she has been diagnosed with dementia. She admits that her memory is becoming somewhat challenging. [] Past Medical History Allergies/Adverse Reactions: Allergies No Known Allergies Allergy (Verified 12/30/17 11:21) Home Medications: Ambulatory Orders Medication Instructions Recorded Aspirin [Aspirin, Baby] 81 mg PO DAILY@0800 12/30/17 Donepezil HCl [Aricept] 5 mg PO DAILY 12/30/17 Gabapentin [Neurontin] 300 mg PO DAILY 12/30/17 Memantine HCl 5 mg PO BID 12/30/17 Sotalol HCl [Betapace AF (Beta 80 mg PO DAILY 12/30/17 Robyn)] lisinopril 2.5 mg tablet 2.5 mg PO DAILY #90 tab 12/30/17 simvastatin 20 mg tablet 20 mg PO QHS #90 tab 12/30/17 Past Medical History (Chronic Problems): Chronic Problems Dementia (Chronic) Paroxysmal atrial fibrillation (Chronic) Hyperlipidemia (Chronic) Hypertension (Chronic) Surgical History: colectomy Psychiatric History: No pertinent psych hx TAX ATTORNEY History: No pertinent TAX ATTORNEY history - *Family History Maternal History Items: No pertinent history Paternal History Items: No pertinent history Lives: Spouse/ Significant Other Smoking Status: Former smoker Alcohol: None Drugs: None Review of Systems - Review of Systems General: Denies: Fever, Night Sweats, Fatigue Cardiovascular: Reports: Syncope. Denies: Chest Discomfort, Shortness of Breath , Orthopnea, PND, Peripheral Edema, Palpitations, Lightheadedness, Dizziness Respiratory: Denies: Cough, Sputum Production, Hemoptysis Gastrointestinal: Denies: Hematemesis, Hematochezia, Melena Genitourinary: Denies: Dysuria, Hematuria Skin: Denies: Rash Subjectve: Is a 72-year-old white female who appears to be resting comfortably at the moment in no acute distress. Objective: Vital Signs Temp Pulse Resp BP Pulse Ox 97.8 F 59 L 16 112/52 L 95 01/01/18 12:07 01/01/18 12:07 01/01/18 12:07 01/01/18 12:07 01/01/18 12:07 Oxygen Flow Rate (L/min) 1 Oxygen Delivery Method Room Air Weight: 132 lb 4.438 oz Body Mass Index (BMI) 22.0 Intake and Output for Last 24 Hours 12/30/17 12/31/17 01/01/18 23:59 23:59 23:59 Intake Total 360 / 360 2053 530 / 530 Balance 360 / 360 2053 530 / 530 General: Awake, Alert, Oriented x 3, Cooperative, No Acute Distress HEENT: Atraumatic, Normocephalic, PERRL, EOMI, Sclera Non Icteric Oral: Moist Mucosa Neck: Supple, Good ROM, No JVD Lungs: Clear to auscultation Cardiovascular: Regular Rhythm, Normal S1, Normal S2 Vascular: No Carotid Bruits Abdomen: Bowel Sounds Present, Soft, Non Tender Extremities: No Cyanosis, No Clubbing, No edema Neurological: No Focal Motor or Sensory Deficit Psych/Mental Status: Appropriate, Normal Affect, Dementia Rhythm: Sinus rhythm EKG: Sinus rhythm ECHO: As noted above Stress Test: 03/16/2015: Stress nuclear imaging study/pharmacologic stress nuclear imaging study: Nuclear images demonstrating myocardial perfusion within normal limits Cardiac Cath: 10/02/2009: Left ventricle considered normal with an LVEF of 65%; left main-normal; LAD-ostial 10% stenosis; LCx-minimal luminal irregularities; RCA-proximal to mid diffuse 10-25% stenosis CXR: Preliminary evaluation: No acute cardiopulmonary disease process appreciated: Please see official report Assessment/Plan 1. Syncope The etiology of the patient's syncopal event is uncertain at this time. There are concerns of potential underlying cardiac dysrhythmia/conduction system related abnormality, however, none have been detected at this time during her hospitalization. There may be concerns of underlying vasovagal type events, however, the patient does not describe other associated symptoms with her recent event. Thus far there is been no other obvious explanation. Her noninvasive evaluation is as noted above. At the present time she is going to continue medical management. It is unclear as to whether her new medication, Namenda, is contributing to her symptoms and/ or event. It may not be unreasonable to consider placing this on hold temporarily. Otherwise it was felt the patient would be further evaluated with a 30 day ambulatory event monitor. This would be to correlate any other symptoms or events with her underlying cardiac rhythm. 2. Paroxysmal atrial fibrillation The patient remains in sinus rhythm at this time. She will continue her current medical management. She will continue follow-up as noted above. 3. Hyperlipidemia The patient will continue risk factor evaluation medical management as deemed appropriate. 4. Hypertension The patient's blood pressures will need to be followed. Her medications can be adjusted as deemed appropriate. 5. Dementia She will continue under the care of her primary care physician for this diagnosis. Comment: The patient's case was discussed with the patient. She was agreeable to this approach. This note was generated with [employer] dictation software. It may contain incorrect words, spelling, and punctuation that were not noted in checking the note before signing.
--- NOTE | 2018-01-01 13:42 | DS.PCM_ITS ---
<Vish Abebe - Last Filed: 01/01/18 13:33> Discharge Date and Diagnosis Date of Admission: 12/30/17 Date of Discharge: 01/01/18 - Primary Discharge Diagnosis Syncope unclear etiology Dementia HTN Paroxysmal AF HLD - Secondary Discharge Diagnosis Chronic Problems Dementia (Chronic) Paroxysmal atrial fibrillation (Chronic) Hyperlipidemia (Chronic) Hypertension (Chronic) Hospital Course and Treatment Imaging Results: RAD/Chest 1 View (Portable) IMPRESSION: The lungs are hyperexpanded. Carotid US: Interpretation Summary Minimal irregular calcific plague at the proximal right internal carotid with < 50% stenosis. Minimal irregular calcific plague at the proixmal left internal carotid with <50 % stenosis. Normal flow bilateral external carotids Patent and antegrade vertebrals bilaterally. Echo: Interpretation Summary Left ventricular systolic function is normal. The estimated ejection fraction is 65 %. Mild (1+) mitral valve insufficiency. Mild tricuspid valve insufficiency. Mild focal aortic valve thickening. Trivial pulmonic valve insufficiency. Right ventricular systolic pressure estimated to be 21 mmHg. No evidence for diastolic dysfunction. Consults: [facility] - cardiology Operations: None Procedures: 2-D Echocardiogram Summary of Care Provided: Physical exam on day of discharge: General: Resting comfortably NAD Psych: A/Ox3 normal affect HEENT: PEARRLA AT NC Neck: Supple NT CV: RRR no m/t/r/g/h Resp: CTA Abd: [id number] Soft NT no guarding or rigidity Ext: DP2+= no edema Skin: W/D normal turgor Lymph/Heme: No active bleeding or adenopathy Neuro: CN2-12 intact Hospital course: The patient is a 72 year old F with a hx of Paroxysmal AF, dementia, HLD, who presented to the ER with a syncopal episode that occurred suddenly without warning while standing and talking to her sister. She presented to the ER and had mild leukocytosis but otherwise normal bloodwork, negative UA, negative CXR , negative troponin, negative EKG. She was admitted to telemetry and maintain on tele overnight with repeat troponins. These were negative. She underwent an echocardiogram and carotid ultrasound. Orthostatic vitals were negative. Cardiology was consulted who recommended a 30 day event monitor. She had no further symptoms so she was discharged home in stable condition. Of note, she also had recently started namenda 3 days prior to this occurrent which could possibly have contributed, however it was continued here and she had no issues. Additionally it could have been stress related as she revealed the conversation with her sister was very upsetting and her felt it may have been contributory. Please follow up with PCP and cardiology. This patient was seen by Vish Abebe PA-C under the supervision of Doctor Jovi. [] Discharge Diet: Low fat/ Low Cholesterol, 2000 mg Sodium Diet Discharge Activity: Return to Normal Activity Home Medications: Medications to take at Discharge Aspirin [Aspirin, Baby] 81 mg PO DAILY@0800 12/30/17 Donepezil HCl [Aricept] 5 mg PO DAILY 12/30/17 Gabapentin [Neurontin] 300 mg PO DAILY 12/30/17 Memantine HCl 5 mg PO BID 12/30/17 Sotalol HCl [Betapace AF (Beta Robyn)] 80 mg PO DAILY 12/30/17 lisinopril 2.5 mg tablet 2.5 mg PO DAILY #90 tab 12/30/17 simvastatin 20 mg tablet 20 mg PO QHS #90 tab 12/30/17 Primary Care Physician: Constance Tavares [Primary Care Provider] - Please follow up with your Primary Care Physician in: 1-2 weeks Please Follow Up With: Stephen Rasmussen MD When: 2 weeks Please Follow Up With: Constance Tavares Disposition: Home Minutes spent on discharge:: 35 Patient Condition:: Stable Medical Necessity - Tobacco Use Smoking Status: Former smoker Meaningful Use Info Meaningful Use Diagnoses (Choose all that apply): None applicable <Sweetie Espana - Last Filed: 01/01/18 15:37> Discharge Date and Diagnosis - Secondary Discharge Diagnosis Chronic Problems Dementia (Chronic) Paroxysmal atrial fibrillation (Chronic) Hyperlipidemia (Chronic) Hypertension (Chronic) Hospital Course and Treatment Summary of Care Provided: The patient is a 72 year old F [] Code Visit Inpatient E&M: 75787 Disch Hosp
== END 2018-01-01 11:41 | disposition home or self-care (01) ==
LOC: ED 12:10 → PCU 14:49
PROVIDERS: Admitting Provider Hospitalist; Emergency Provider Emergency Medicine; Family Provider Internal Medicine; PCP Internal Medicine; Visit Provider Internal Medicine
DX: R55 Syncope and collapse (principal); I48.0 Paroxysmal atrial fibrillation; E78.5 Hyperlipidemia, unspecified; F03.90 Unspecified dementia, unspecified severity, without behavioral disturbance, psychotic disturbance, mood disturbance, and anxiety; I08.1 Rheumatic disorders of both mitral and tricuspid valves; Z87.891 Personal history of nicotine dependence; I65.23 Occlusion and stenosis of bilateral carotid arteries; I10 Essential (primary) hypertension; Z79.899 Other long term (current) drug therapy; Z79.82 Long term (current) use of aspirin
CPT/HCPCS: 36415; 71045; 80048; 81001; 84443; 84484; 85025; 85027; 85610; 93005; 93306; 93880; 96360; 96361; 96372; 97161; 97165; 97802; 99218; 99285; J7030; J7040; A4216; G0378

== ENCOUNTER → 2018-03-17 07:22 | Outpatient (CLI) | payer MEDICARE, SELFPAY | PROVIDERS: Family Provider Internal Medicine; PCP Internal Medicine; Visit Provider Internal Medicine Cardiovascular Disease | DX: I10 Essential (primary) hypertension (principal); I71.4 Abdominal aortic aneurysm, without rupture | CPT/HCPCS: 93978 ==

== ENCOUNTER 2018-04-17 06:16 | Emergency (ER) | payer MEDICARE, SELFPAY ==
[2018-04-17 06:20] VITALS: BP 136/54; PULSE 60; RESP 14; TEMP 36.9; O2SAT 98; BMI 21.6
--- NOTE | 2018-04-17 06:40 | ED.DCSUM_ITS ---
- ER Visit Summary Date of Service: 04/17/18 Chief Complaint: Upset all night History of Present Illness: The patient is a 72 F who presents with labile emotions. She was recently diagnosed with dementia. states that she has had memory problems and does not remember anything for the past year. He states over the last week she has had increased difficulty controlling her emotions. She was up all night last night crying. The patient states that she does feel anxious. She states she had some nausea but that this has since resolved. She otherwise has no focal complaints. No recent illness fever chest pain shortness of breath vomiting diarrhea. The patient states she does not know why she is here. She states she just wants to go home. She does have an appointment with her primary care physician on Friday. Physical Examination: Afebrile vitals are unremarkable Moist mucous membranes Heart regular rate Lungs clear Abdomen soft Alert, oriented to person and place and year but not month, states this is baseline No focal or lateralizing neurological deficits Test Results: Not indicated Emergency Department Course and Treatment: Patient essentially presents with depression and anxiety. No recent medical illness. Patient does have an appointment with her primary care physician on Friday. I explained to the that this is not uncommon with dementia. I advised that will be important to follow-up with the primary care physician as she may benefit from treatment such as an antidepressant. He vocalized understanding. He is agreeable to this plan. We discussed a short course of anxiolytics for now until she can follow-up. The patient states she does not want to take any medication and think she will be fine until Friday but I did explain that she may benefit so we will write the prescription in case she wants to try it. Patient discharged. Treatment Plan: [] Disposition: Discharge Impression: Dementia Anxiety This note was generated with [employer] dictation software. It may contain incorrect words, spelling, and punctuation that were not noted in review of the chart prior to signing ED Disposition - Plan for ED Patient: Chief Complaint: Confusion Referrals: Constance Tavares [Primary Care Provider] -
--- NOTE | 2018-04-17 06:40 | ED.DEP ---
ED Disposition - Plan for ED Patient: Chief Complaint: Confusion Instructions: ED Dementia Caregiver Support Prescriptions: Lorazepam [Ativan] 0.5 mg PO TID #6 tab Referrals: Constance Tavares [Primary Care Provider] -
== END 2018-04-17 06:48 | disposition home or self-care (01) ==
PROVIDERS: Emergency Provider Emergency Medicine; Family Provider Internal Medicine; PCP Internal Medicine
DX: F41.9 Anxiety disorder, unspecified (principal); F03.90 Unspecified dementia, unspecified severity, without behavioral disturbance, psychotic disturbance, mood disturbance, and anxiety; F32.9 Major depressive disorder, single episode, unspecified; I48.91 Unspecified atrial fibrillation; Z79.82 Long term (current) use of aspirin; Z79.899 Other long term (current) drug therapy
CPT/HCPCS: 99282; A4216

== ENCOUNTER → 2018-10-12 07:34 | Outpatient (CLI) | payer MEDICARE, SELFPAY ==
--- NOTE | 2018-10-12 07:37 | AAAS_ITS ---
Reason For Study: AAA Aorta Measurements Aorta Doppler Measurements Proximal aorta measures1.9cm. in cross-sectional Peak systolic flow velocities within the proximal axis. aorta measure 42.5 cm/sec. Proximal aorta measures1.9 x 1.9cm. in Peak systolic flow velocities within the mid aorta longitudinal axis. measure 50.1 cm/sec. Mid aorta measures2.1 x 2.2cm. in cross-sectional Peak systolic flow velocities within the distal axis. aorta measure 18.6 cm/sec. Mid aorta measures2.0cm. in longitudinal axis. Distal aorta measures3.8 x 4.3cm. in cross- sectional axis. Distal aorta measures3.8cm. in longitudinal axis. Distal aorta with thrombus and residual lumen 2.1x 2.4 cm. Left Iliac Artery Left iliac artery measures .88 cm. in the longitudinal axis. Left iliac artery measures 1.0 x .98 cm. in the cross-sectional axis. Peak systolic velocity in the left iliac artery measures 77.6 cm/sec. Right Iliac Artery Right iliac artery measures .92 cm. in the longitudinal axis. Right iliac artery measures 1.0 x 1.0 cm. in the cross-sectional axis. Peak systolic velocity in the right iliac artery measures 78.8 cm/sec. Procedure Aorta IVC Iliac vasculature or bypass grafts [id number]. Exam performed in department. Interpretation Summary Distal abdominal aortic aneurysm 3.82 x 4.25 cm. Mural thrombus noted. Distal lumen 2.1 x 2.4 cm Markedly diminished flow rate of 18.6cm/sec in the distal aorta. Left iliac 0.88 cm with normal flow rate Right iliac 0.92 cm with normal flow rate Minimal change since 03/17/18 Ordering Physician: Fracisco Villa Referring Physician: Fracisco Villa Performed By: Katherine Leong RVT
== END ==
PROVIDERS: Family Provider Internal Medicine; PCP Internal Medicine; Referring Provider Surgery; Visit Provider Surgery
DX: I71.4 Abdominal aortic aneurysm, without rupture (principal)
CPT/HCPCS: 76706

== ENCOUNTER 2020-01-07 22:22 | Observation (INO) | payer MEDICARE, SELFPAY ==
[2019-10-27 13:27] VITALS: BMI 19.3
[2020-01-07 22:23] VITALS: PULSE 68; RESP 16; TEMP 36.4; O2SAT 98; BMI 21.2
--- NOTE | 2020-01-07 22:31 | EKG12_ITS ---
Test Reason : PLACEMENT Blood Pressure : / mmHG Vent. Rate : 057 BPM Atrial Rate : 057 BPM P-R Int : 172 ms QRS Dur : 062 ms QT Int : 450 ms P-R-T Axes : 030 011 014 degrees QTc Int : 438 ms Sinus bradycardia Otherwise normal ECG Confirmed by KM MOCTEZUMA, LIA ([id number]), content editor FARZAD SIERRA ([id number]) on 01/11/2020 9:21:30 AM Referred By: DR PAUL Confirmed By:LIA BARBOUR MD
--- NOTE | 2020-01-07 22:32 | ED.DCSUM_ITS ---
History of Present Illness Chief Complaint: Confusion Informant: Patient Limited by: Dementia Narrative: Patient brought in by EMS secondary to increased confusion and combative behavior at home. She reported has a history of dementia and lives with her . She has been hitting him all day. When I asked the patient if she knows why she is here she states because she lost that and was yelling at people. She admits to hitting people. She does not know if she lives at home or at a skilled nursing. Right now she reports feeling back to her normal baseline. - Past Medical History (1) Abdominal aortic aneurysm, without rupture Status: Chronic (2) Dementia Status: Chronic (3) Essential hypertension Status: Chronic (4) Hyperlipidemia Status: Chronic (5) Paroxysmal atrial fibrillation Status: Chronic Past Medical History - Allergies and Home Meds Allergies/Adverse Reactions: Allergies sertraline [From Zoloft] Adverse Reaction (Severe, Verified 01/07/20 22:27) Dizziness memantine Adverse Reaction (Verified 01/07/20 22:27) Unknown Primary Care Physician: Constance Tavares MD [Primary Care Provider] - Prior records reviewed: Yes Surgical History: colectomy Lives: Spouse/ Significant Other Smoking Status: Former smoker - Family History Maternal Family History: Family History (Last Reviewed 01/08/20 @ 02:[address] Jet Krause MD) Father CAD (coronary artery disease) Myocardial infarction Brother Heart disease Mother Heart disease Family History: Reports: No pertinent history Paternal Family History: Family History (Last Reviewed 01/08/20 @ 02:[address] Jet Krause MD) Father CAD (coronary artery disease) Myocardial infarction Brother Heart disease Mother Heart disease Family History: Reports: No pertinent history Review of Systems General: Denies: Chills, Fever Cardiovascular: Denies: Chest pain, Palpitations Respiratory: Denies: Dyspnea Gastrointestinal: Denies: Abdominal pain, Nausea, Vomiting, Diarrhea Musculoskeletal: Denies: Swelling, Extremity Pain Neurological: Denies: Headache Hematologic: Denies: Easy bruising, Easy bleeding Allergy: Denies: Uticaria Physical Exam Vital Signs/Narrative: Vital Signs Temp Pulse Resp Pulse Ox 01/07/20 22:23 97.6 F L 68 16 98 Inital Vital Signs reviewed: Yes General: Well nourished, Well developed Head: Normocephalic ENT: Moist mucous membranes Neck: Supple Cardiovascular: Regular rate, Regular rhythm Respiratory: No distress, CTA bilaterally Abdomen: Soft, Nontender Skin: Normal color Neurological: Alert, - - No focal neurologic deficits. Patient has baseline dementia and unable to provide much history. Psychological: Agitated Diagnostic/Tx/Re-eval Laboratory Results 01/07/20 01/07/20 01/07/20 23:00 23:00 23:10 WBC 10.2 RBC 3.46 L Hgb 11.6 L Hct 34.9 L MCV 100.9 H MCH 33.5 H MCHC 33.2 RDW Std Deviation 45.5 H RDW Coeff of Reyna 12.5 Plt Count 143 L MPV 10.2 Immature Gran % (Auto) 0.400 Neut % (Auto) 75.7 H Lymph % (Auto) 13.2 L [place] % (Auto) 9.8 Eos % (Auto) 0.6 Baso % (Auto) 0.3 Absolute Neuts (auto) 7.7 Absolute Lymphs (auto) 1.35 Nucleated RBC % 0 Sodium 138 Potassium 3.6 Chloride 106 Carbon Dioxide 28.0 Anion Gap 4 L BUN 17 Creatinine 0.91 Estim Creat Clear Calc 49.54 Est GFR (MDRD) Af Amer 78 Est GFR (MDRD) Non-Af 64 BUN/Creatinine Ratio 18.6 Glucose 112 H Calcium 9.3 Urine Color Yellow Urine Clarity Clear Urine pH 6.5 Ur Specific Gamaliel 1.020 Urine Protein 15 H Urine Glucose (UA) Normal Urine Ketones 5 H Urine Occult Blood 10 H Urine Nitrite Negative Urine Bilirubin Negative Urine Urobilinogen 4 H Ur Leukocyte Esterase 25 H Urine RBC 0 SEEN Urine WBC 0-5 SEEN Ur Squamous Epith Cells 5-10 SEEN Urine Bacteria 0 SEEN Urine Mucus 1+ - EKG Initial EKG Interpretation: Sinus Bradycardia - Sinus bradycardia 57 bpm. No acute ischemia. - Medical Decision Making Patient is been stable in the emergency room. is now at bedside. He does state that the patient is currently on a waiting list for skilled nursing, but his daughter or [id number] is handling those arrangements and he has not not sure what skilled nursing they are working with. Patient does not seem to be aware of this. He states that this came about last week because of her worsening behavior at home and his inability to care for her. At this time I think the safest thing for the patient would be observation overnight to have social work meet with the patient and family and get best plan of care outlined for her. After speaking with the hospitalist he is concerned that if the patient needs medication to control her behavior outburst that she will need to be seen by [facility]. Patient was evaluated by Daria from the counseling center. After speaking with the patient and her she advises me that the patient does not meet criteria for inpatient psychiatric treatment. I went back to speak with again at bedside. He still feels that he cannot care for her in this condition at home and she will need placement. I will speak with the hospitalist again regarding admission. Hospitalist saw the patient in the emergency room. He feels that this is psychiatric in nature and will not admit the patient to the floor. Patient be observed in the emergency room until I have social work available to help us with placement. I do not feel the patient is safe to be discharged home with her family at this time. Addendum: I was contacted by the [facility] hospitalist who reviewed the patient's note. She will admit the patient to the floor for further evaluation and placement. ED Disposition - Plan for ED Patient: Disposition: Acute Care Hospital [facility] Diagnosis: Dementia with behavioral disturbance Referrals: Constance Tavares MD [Primary Care Provider] -
[2020-01-07 23:06] LABS: Absolute Lymphocyte Count 1.35 X10^3/uL (0.83-4.51); Absolute Neutrophil Count 7.7 X10^3/uL (2.0-7.7); Basophil# 0.03 X10^3/uL; Basophil% 0.3 % (0-1); Eosinophil# 0.06 X10^3/uL; Eosinophils% 0.6 % (0-5); Hematocrit 34.9 % (37-47); Hemoglobin 11.6 g/dL (12.0-15.0); Lymphocyte # 1.35 X10^3/ul (4.0); Lymphocyte % 13.2 % (19-41); Mean Corp Hgb Conc 33.2 g/dL (32-36); Mean Corpuscular Hgb 33.5 pg (27.0-32.0); Mean Corpuscular Volume 100.9 fL (81-99); Mean Platelet Vol. 10.2 fl (6.2-12.0); Monocyte% 9.8 % (0-10); NRBC Flagged by Analyzer 0 % (0-5); Neutrophil # 7.72 X10^3/uL (2.7-7.7); Neutrophil % 75.7 % (47-70); Platelet Count 143 K/mm3 (150-450); RBC Distribution Width CV 12.5 % (11.6-14.6); RBC Distribution Width SD 45.5 fl (35.1-43.9); Red Blood Count 3.46 M/mm3 (4.2-5.4); White Blood Count 10.2 K/mm3 (4.4-11.0)
[2020-01-07 23:16] LABS: Bacteria 0 SEEN /hpf (None Seen); Red Blood Cells-Urine 0 SEEN /hpf (0-5)
[2020-01-07 23:17] LABS: Anion Gap 4 (5-15); BUN 17 mg/dL (7-18); BUN/Creat Ratio 18.6 RATIO (10-20); Calcium,Total 9.3 mg/dL (8.5-10.1); Chloride 106 mmol/L (98-107); Creatinine, Serum 0.91 mg/dL (0.55-1.02); EST Glomerular Filtration Rate 64 mL/min (>60); Est Glom Filt Rate - Afr Amer 78 mL/min (>60); Estimated Creatinine Clearance 49.54 ml/min; Glucose 112 mg/dL (74-106); Potassium 3.6 mmol/L (3.5-5.1); Sodium Level 138 mmol/L (136-145)
[2020-01-07 23:18] LABS: Color, Urine Yellow (Yellow); Glucose, Dipstick Normal (Normal); Ketone-Dipstick 5 mg/dl (Negative); Leukocyte Esterase-Dipstick 25 /ul (Negative); Nitrite-Dipstick Negative (Negative); Occult Blood-Urine 10 /ul (Negative); Protein-Dipstick 15 mg/dl (Negative); Urine Bilirubin Dipstick Negative (Negative); Urine Clarity Clear (Clear); Urine Urobilinogen 4 mg/dl (Normal); Urine pH 6.5 (5.0 - 8.0)
[2020-01-07 23:25] LABS: Mucous, Urine 1+ /hpf (<or=2+); White Blood Cells 0-5 SEEN /hpf (0-5)
[2020-01-07 23:26] LABS: Squamous Epithelial Cells - UA 5-10 SEEN /hpf (5-10)
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
[2020-01-08] VITALS (8 sets, daily range): BP systolic 115–133; BP diastolic 68–88; PULSE 59–119; RESP 16; TEMP 36.3–36.6; O2SAT 98–99; BMI 19.3; BMI 19.4
--- NOTE | 2020-01-08 07:01 | NURSING ---
MED SURG OBS WHITE DEMENTIA WITH BEHAVIORAL DISTURBANCE
--- NOTE | 2020-01-08 08:00 | CT_ITS ---
STUDY: CT BRAIN WITHOUT CONTRAST REASON FOR EXAM: Female, 74 years old patient is combative and confused. RADIATION DOSAGE (If Supplied By Facility): CTDIvol = ( 44.99 ) mGy, DLP = ( 779.24 ) mGycm TECHNIQUE: Transaxial CT imaging of the brain was performed without administration of intravenous contrast material. Multiplanar reformations are submitted for interpretation. Individualized dose optimization techniques were used for this CT. COMPARISON: No relevant priors. FINDINGS: Normal soft tissue structures. There is thickening of the cranium. There is mild cerebral atrophy with widening of the extra-axial spaces and ventricular dilatation. There are areas of decreased attenuation within the white matter tracts of the supratentorial brain, consistent with microvascular disease changes. Normal basal ganglia and thalami. Normal brainstem. There is mild cerebellar atrophy. There is no intracranial hemorrhage. There is mild atherosclerotic calcification of the intracranial arteries. There is a large pineal calcification measuring approximately 7 mm. Normal visualized paranasal sinuses. CT/Brain/Head without Contrast IMPRESSION: 1. Chronic involutional changes of the brain. 2. No CT evidence of acute intracranial hemorrhage. Electronically Signed: Felicity Hodge MD at 9:21 EDT , Service support ,
[2020-01-08] MEDS: Aspirin 81 MG TAB.CHEW PO (09:51)
[2020-01-08] MEDS: Enoxaparin 40 MG/0.4 ML Syringe SC (09:51)
[2020-01-08] MEDS: QUEtiapine 25 MG Tablet 12.5 MG PO (09:51)
[2020-01-08] MEDS: Lisinopril 2.5 MG Tablet PO (09:51)
[2020-01-08] MEDS: 0.9% Normal Saline 1,000 ML 100 ML IV (10:00)
[2020-01-08 10:32] LABS: Magnesium 2.1 mg/dL (1.6-2.6)
[2020-01-08 10:57] LABS: Thyroid Stim Hormone (TSH) 1.41 uIU/mL (0.358-3.74)
[2020-01-08] MEDS: Haloperidol Lactate 5 MG/ML Vial 1 MG IV (11:45)
--- NOTE | 2020-01-08 13:25 | CASEMGMT ---
SOCIAL WORK INFORMANT: NURSING/DR. BYNUM REASON FOR REFERRAL: [facility] MARITAL/SOCIAL HISTORY: LIVING SITUATION: HOME WITH . 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 PARANOID- DAUGHTER REPORTS SHE BELIEVES PEOPLE ARE TRYING TO STEAL HER MONEY, CONSTANTLY CHECKING HER PURSE. JUDGMENT: UNABLE TO EVALUATE ASSESSMENT: DISCUSSED WITH NURSING STAFF AND PHYSICIAN. PATIENT REQUIRES [facility]. PATIENT HAS REQUIRED HALDOL AND GEODON THIS MORNING. PATIENT WITH INCREASED CONFUSION, AGITATION AND COMBATIVE BEHAVIOR WITH AT HOME. UNABLE TO CARE FOR PATIENT WITH THIS CHANGE IN MENTAL STATUS IT IS UNSAFE FOR BOTH. PER DAUGHTER, PATIENT HAS NOT BEEN EATING, SLEEPING, OR WANTING TO CARE FOR SELF. DAUGHTER STATES WITH PERSISTENCE, PATIENT WILL FOLLOW COMMANDS. DAUGHTER REPORTS PATIENT WAS STARTED ON SLEEPING AIDE AND WHEN IT DID NOT WORK, PHYSICIAN ORDERED TO INCREASE DOSE. DAUGHTER STATES WITH INCREASED DOSE PATIENT WAS KNOCKED OUT AND WHEN AWAKE HAD TROUBLE WITH AMBULATION. DAUGHTER AND IN AGREEMENT WITH [facility] FOR STABILIZATION. PATIENT IS ON WAIT LIST FOR A DEMENTIA UNIT AT [facility]. PLAN: [facility], THIS WORKER TO FACILITATE PLACEMENT Valerie PRADHAN MSW, BANK SALES AND SERVICE MANAGER.
--- NOTE | 2020-01-08 13:30 | NURSING ---
pts daughter lc called to see if talking with pt would help calm her some. pt still up in halls. siting in wc now by nurses desk. pt refusing to go back to room however despite talking with family. unable to retain info when info and directions explained to her. new order for felicitas received.
[2020-01-08] MEDS: Sotalol Hydrochloride 80 MG Tablet PO (13:41)
[2020-01-08] MEDS: Ziprasidone IM 20 MG/ML VIAL 10 MG IM (13:41)
--- NOTE | 2020-01-08 13:45 | CM.ED ---
SOCIAL WORK REFERRAL CALLED AND FAXED TO [facility]. [facility] TO REVIEW AND GET BACK TO THIS WORKER. Valerie PRADHAN, FRUIT OR NUT PICKER, PRINTED FORMS PROOFREADER.
--- NOTE | 2020-01-08 14:50 | CASEMGMT ---
SOCIAL WORK RECEIVED CALL FROM RASHIDA WITH [facility]. PATIENT ACCEPTED BY Cheryl DUFFY NP TO THE GERIATRIC UNIT. NURSE TO CALL REPORT AFTER TRANSPORTATION ARRANGED. REPORT TO BE CALLED TO [facility]. STAFF UPDATED. CALL TO PATIENT'S , NO ANSWER. CALL TO PATIENT'S DAUGHTER, SUMMER MAYEN . UPDATED ON PATIENT'S ACCEPTANCE TO [facility]. ALL QUESTIONS ANSWERED. PLAN: [facility] DLia PRADHAN, HR ADVISOR, CRECHE ATTENDANT.
[2020-01-08] MEDS: Acetaminophen 325 MG Tablet 650 MG PO (14:58)
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
--- NOTE | 2020-01-08 16:16 | CASEMGMT ---
SOCIAL WORK RECEIVED CALL FROM PATIENT'S DAUGHTER. ATTEMPTED TO COME VISIT PATIENT AND WAS TOLD UNABLE TO VISIT. DAUGHTER STATES SPOKE WITH HIM ON HIS CELL PHONE ([phone]) AND HE STATED IT WAS OK UNABLE TO VISIT HE CAN'T HANDLE IT. DAUGHTER STATES HER FATHER HAS BEEN VERY EMOTIONAL. MUCH SUPPORT PROVIDED. DAUGHTER PROVIDED WITH CONTACT NUMBERS FOR [facility]. CALL TO [facility] AND PROVIDED CONTACT NUMBERS FOR 'S CELL AND DAUGHTER'S NUMBER.
[2020-01-10 09:40] LABS: Vitamin B12 297 pg/mL (211-911)
[2020-01-11 04:55] LABS: Vitamin D 1,25-Dihydroxy 70.4 pg/mL (19.9-79.3)
== END 2020-01-08 16:33 | disposition short-term general hospital (02) ==
LOC: ED 01-08 07:00 → MS3 01-08 07:17
PROVIDERS: Admitting Provider Family Medicine; Emergency Provider Emergency Medicine; PCP Internal Medicine; Visit Provider Family Medicine
DX: F03.91 Unspecified dementia, unspecified severity, with behavioral disturbance (principal); R45.1 Restlessness and agitation; I71.4 Abdominal aortic aneurysm, without rupture; I48.0 Paroxysmal atrial fibrillation; E78.5 Hyperlipidemia, unspecified; I10 Essential (primary) hypertension; Z79.899 Other long term (current) drug therapy; Z79.82 Long term (current) use of aspirin; Z87.891 Personal history of nicotine dependence; R00.1 Bradycardia, unspecified
CPT/HCPCS: 70450; 80048; 81001; 82607; 82652; 82746; 83735; 84439; 84443; 85025; 87635; 92610; 93005; 96361; 96372; 96374; 99218; 99251; 99285; G2023; J7030; A4216; G0378; G0463; J3486; U0003